=== PATIENT | female | born 1955 | race Caucasian/White ===

== ENCOUNTER 2019-04-23 10:06 | Day surgery (SDC) | payer BC ==
[~2019-04-23 10:06] MED LIST: Midazolam 1 MG/ML 2 ML SDV ONE; Propofol 200 MG/20 ML SDV ONE
[2019-04-23] MEDS ORDERED: Lactated Ringers 1,000 ML IV SCH (10:15)
[2019-04-23] MEDS ORDERED: Sodium Chloride 0.9% 10 ML Syringe FLUSH PRN (10:15)
[2019-04-23] MEDS ORDERED: Propofol 200 MG/20 ML SDV ONE ×2 (11:52→11:53)
[2019-04-23] MEDS ORDERED: Midazolam 1 MG/ML 2 ML SDV ONE (11:53)
--- NOTE | 2019-04-23 12:25 | PCM.OPNOTE ---
- General Post-Op/Procedure Note Date of Surgery/Procedure: 04/23/19 Operative Procedure(s): Colonoscopy Findings: normal Pre Op Diagnosis: Screening Post-Op Diagnosis: Same Anesthesia Technique: CHRISTINA Primary Surgeon: Kenrick Manley Anesthesia Provider: Tena Shi Complications: None Condition: Good
--- NOTE | 2019-04-23 12:25 | PCM.HPR ---
H & P Addendum review - H & P Addendum Review Date of Original H & P: 03/31/19 Date Reviewed: 04/23/19 Time Reviewed: 11:50 Patient was Examined: No Changes
--- NOTE | 2019-04-23 13:45 | OR ---
Date of Procedure: 04/23/2019 PREOPERATIVE DIAGNOSIS: Colon screening. POSTOPERATIVE DIAGNOSIS: Normal colonoscopy. PROCEDURE: Colonoscopy. ANESTHESIA: IV sedation. PROCEDURE: Patient was brought to the procedure room where she was placed on her left side and IV sedation administered. Digital rectal exam was performed, which was normal. Colonoscope was inserted and advanced to the level of the hepatic flexure without difficulty. At that time, required pressure on the abdomen to advance to the cecum which was confirmed by identifying the appendiceal lumen and the ileocecal valve. Prep was good and surfaces were well visualized. Upon withdrawing the scope, the ascending, transverse, and descending colon were normal in appearance. Sigmoid colon and rectum were normal. Retroflexion was normal. Air was removed and the scope withdrawn. Patient tolerated the procedure well and returned to recovery in stable condition. Recommend routine colon screening again in 10 years. MILTON ASIF MD /[id number]
== END 2019-04-23 13:56 | disposition home or self-care (01) ==
LOC: LL.SDS 10:06
PROVIDERS: ATTEND Surgery
DX: Z12.11 Encounter for screening for malignant neoplasm of colon (principal); E78.00 Pure hypercholesterolemia, unspecified; F33.42 Major depressive disorder, recurrent, in full remission; R73.03 Prediabetes; Z79.899 Other long term (current) drug therapy
CPT/HCPCS: J2250; J2704; J7120